=== PATIENT | female | born 1955 | race African-American/Black ===

== ENCOUNTER 2016-12-18 13:03 | Inpatient (IN) | payer SELFPAY ==
--- NOTE | ~2016-12-18 | OP ---
Record Of Operation [facility] [address] [place]. [address] NAME: MALVNI RUIZ : 57 STATUS : ADM IN PAT#: [id number] AGE: 61 ADM/REG DATE : 12/18/16 MR#: [id number] REPORT SERV DATE: 12/19/16 DICTATED BY: TOY DEMPSEY DATE: 12/18/16 REPORT STATUS : Draft TRANSCRIBED BY: MODL DATE: 12/18/16 DATE OF PROCEDURE: 12/18/2016 PREOPERATIVE DIAGNOSES: 1. Thoracic aortic aneurysm with rupture. 2. Claudication, left leg. POSTOPERATIVE DIAGNOSES: 1. Thoracic aortic aneurysm with rupture. 2. Claudication, left leg. PROCEDURES: 1. Thoracic aortogram. 2. Thoracic stent graft placement. 3. Aortogram and left iliac arteriogram. 4. Angioplasty and stent placement of the left external iliac artery. 5. Intravascular ultrasound of the abdominal and thoracic aorta. SURGEON: Toy Dempsey M.D. FELLOW: [employer]. ANESTHESIA: General. COMPLICATIONS: None. ESTIMATED BLOOD LOSS: 50 mL. HISTORY: The patient is a 61-year-old female who presented to [facility] with chest pain, which has actually been going on for a few weeks. CT scan showed a thoracic aneurysm with extravasation of contrast with a dissection in the abdominal aorta with adequate perfusion. She additionally had claudication symptoms in her left leg. It was felt she would benefit from repair of this thoracic aneurysm where the extravasation was noted. Additionally, plan is for evaluation of her perfusion to her left leg. This was discussed in detail the patient and family. They expressed understanding and desired to proceed. DESCRIPTION OF PROCEDURE: The patient was taken to the operating room and placed in the supine position. She was given general anesthesia without complication. Her abdomen, groins, and thighs were prepped and draped in sterile fashion. Ultrasound was used to identify the common femoral on the right. 1% lidocaine was infiltrated in the skin and subcutaneous tissues. Under ultrasound guidance, an 18-gauge needle was placed in the common femoral artery. Wire was passed through aorta which confirmed with fluoroscopy. The needle was removed. The access was pre-closed with two ProGlide devices at 90-degree angles after creating the skin incision with an 11 blade. The 11-Ugandan sheath was placed and the IVUS 9-Ugandan device used to perform intravascular ultrasound of the abdominal and thoracic aorta. A dissection was noted throughout the abdominal aorta. The bilateral renal Record Of Operation [facility] [address] [place]. [address] NAME: MALVIN RUIZ : 57 STATUS : ADM IN PAT#: [id number] AGE: 61 ADM/REG DATE : 12/18/16 MR#: [id number] REPORT SERV DATE: 12/19/16 DICTATED BY: TOY DEMPSEY DATE: 12/18/16 REPORT STATUS : Draft TRANSCRIBED BY: MODL DATE: 12/18/16 arteries, celiac, and SMA all appeared to come of the true lumen. They become what appears to be aneurysmal thoracic aorta with hematoma intramurally from the distal thoracic aorta to the arch. There was a bovine arch with the left subclavian origin which was seen as the innominate and bovine origin. Upon removing this, a UF catheter was passed and arch aortogram performed showing a patent aneurysmal arch. No extravasation is noted. Attention was turned to the left groin, the common femoral artery was identified with ultrasound accessed with 18-gauge needle. Wire passed easily. The needle was removed. A 5-Ugandan sheath was placed. The UF catheter was passed proximally. A 28 x 100 thoracic stent graft was brought up to the aortic arch over a Lunderquist wire and repeat arteriogram performed noting the location as subclavian in origin. The stent graft was then deployed, passed the subclavian origin and post arteriogram shows it to be patent with patent subclavian and innominate origins as well. Attention was then turned distally. The UF catheter was used to perform aortogram, which shows patent renal arteries bilaterally. There was poor flow in the aorta though. The large deployment device is still in place for the thoracic stent graft. This was pulled back distally and aortogram shows a small patent true lumen with what appears to be fairly prompt flow into the iliac arteries bilaterally. No evidence for stenosis is seen in the common iliac artery on the left. There does appear to be a mild stenosis in the external iliac artery. An 8 mm balloon was used to angioplasty the stenotic area of the external iliac artery proximally and post arteriogram shows it to be patent with no stenosis. There was still poor flow in the vessel beyond. Repeat arteriogram shows stenosis in the external iliac artery at its distal aspect just above the sheath and after angioplasty this area is actually more stenotic. A 7 x 40 self-expanding stent deployed here and post arteriogram shows it now to be widely patent with prompt flow. There was prompt flow into the common iliac as well. The SFA and profunda femoral origin all appear patent as well. This was felt to be adequate result. The sheath was removed from the right side and access closed with ProGlide device without difficulty. On the left, the sheath was removed and pressure held for 15 minutes. Hemostasis was achieved. The patient tolerated the procedure well. She will be taken to the recovery room in the ICU for postoperative care. EVITA/CRISPIN Toy Dempsey M.D. / [id number] CC: Toy Dempsey M.D.
--- NOTE | ~2016-12-18 | HP ---
History And Physical [place] [id number] [facility] [place]. [address] NAME: MALVIN RUIZ : 57 STATUS : ADM IN [facility]#: [id number] AGE: 61 ADM/REG DATE : 12/18/16 MR#: [id number] REPORT SERV DATE: 12/19/16 DICTATED BY: VIVIAN DEMPSEY DATE: 12/18/16 REPORT STATUS : Draft TRANSCRIBED BY: MODL DATE: 12/18/16 DATE OF ADMISSION: 12/18/2016 HISTORY: The patient is a 61-year-old female, who has had two to three weeks of chest pain. She had been to the ER multiple trips. She went today and underwent evaluation which included a CT scan due to her pleuritic chest pain, and this showed a thoracic aneurysm with extravasation as well as a distal aortic dissection in the abdominal aorta. Her other symptoms include claudication primarily in the left leg and some numbness in her left foot as well. She has no ulcerations or no rest pain symptoms. She has not had previous vascular issues. REVIEW OF SYSTEMS: GENERAL: She denies fever, chills, or systemic complaints. She has chest pain on the left side associated with her presentation. She denies palpitations. RESPIRATORY: She denies cough or shortness of breath, cough. GASTROINTESTINAL: She complains of constipation. GENITOURINARY: No complaints. MEDICATIONS: Her only medication is lisinopril. PAST MEDICAL HISTORY/ILLNESSES: Hypertension. PAST SURGICAL HISTORY: Significant for hysterectomy. SOCIAL HISTORY: Significant for tobacco use. FAMILY HISTORY: Noncontributory. PHYSICAL EXAMINATION: GENERAL: The patient is thin, in no distress. VITAL SIGNS: Within normal limits as is her pulse. LUNGS: Clear bilaterally. HEART: Regular rate and rhythm. ABDOMEN: Soft, nontender. NEUROLOGIC: She is alert and oriented with preserved motor function in lower extremities and upper extremities. She has palpable femoral pulse bilaterally, though it is weaker on the left. Her pedal pulses palpable on the right, nonpalpable on the left. She has no ulcerations on her upper and lower extremities. She did have a palpable radial artery pulse bilaterally. LABORATORY STUDIES: CT scan images were reviewed, which showed a thoracic aneurysm with hematoma and extravasation of contrast into the hematoma. She has distally a type B type dissection, which begins at the diaphragm, the mesenteric vessels, as well as the renal arteries appear patent. IMPRESSION: Type B dissection with extravasation of contrast. Based on this, it was felt History And Physical [address] [place]. [address] NAME: MALVIN RUIZ : 57 STATUS : ADM IN PAT#: [id number] AGE: 61 ADM/REG DATE : 12/18/16 MR#: [id number] REPORT SERV DATE: 12/19/16 DICTATED BY: VIVIAN DEMPSEY DATE: 12/18/16 REPORT STATUS : Draft TRANSCRIBED BY: MODL DATE: 12/18/16 she would benefit from urgent repair to avoid rupture. This was discussed in detail with the patient and family. EVITA/CRISPIN Vivian Dempsey M.D. / [id number] CC: Elana Carroll AMY
[~2016-12-18 13:03] MED LIST: PRIN20 PO
[2016-12-18] MEDS ORDERED: GOODY'S EX-STR1 EAC1 PO (13:58)
[2016-12-18] MEDS ORDERED: GINSENG PO (13:58)
[2016-12-19 04:07] LABS: BASOPHILS 0.1 %; BASOPHILS ABSOLUTE 0.01 10/3/uL (0.0-0.16); EOSINOPHILS 0 %; HEMOGLOBIN 7.2 g/dL (12.0-16.0); IMMATURE GRANULOCYTES 0.1 %; IMMATURE GRANULOCYTES ABSOLUTE 0.01 10/3/uL (0.0-0.11); LYMPHOCYTES 10.5 %; MEAN CORPUS HGB CONC 31.4 g/dL (32.0-36.0); MEAN CORPUSCULAR HEMOGLOB 23.9 pg (26.0-34.0); MEAN CORPUSCULAR VOLUME 76.1 fL (80-100); MONOCYTES 2.2 %; MONOCYTES ABSOLUTE 0.19 10/3/uL (0.21-1.20); NEUTROPHILS 87.1 %; NEUTROPHILS ABSOLUTE 7.47 10/3/uL (2.02-8.40); RBC DISTRIBUTION WIDTH 14.5 % (12.0-16.0); RED CELL COUNT 3.01 10/6/uL (4.0-5.6); WHITE BLOOD CELLS 8.6 10/3/uL (4.5-10.5)
[2016-12-19 04:08] LABS: HEMATOCRIT 22.9 % (36.0-48.0); MANUAL DIFF NO %; PLATELET COUNT 523 10/3/uL (150-400)
[2016-12-19 04:18] LABS: BUN (BLOOD UREA NITROGEN) 13 MG/DL (6-23); CHLORIDE, SERUM 109 MMOL/L (96-112); CREATININE 0.74 MG/DL (0.55-1.02); GFR AFRICAN AMERICAN 102 ML/MIN (>=60); GFR NON AFRICAN AMERICAN 88 ML/MIN (>=60); POTASSIUM, SERUM 4.4 MMOL/L (3.5-5.3); SODIUM, SERUM 143 MMOL/L (135-148)
[2016-12-19 04:20] LABS: CALCIUM, SERUM 8.5 MG/DL (8.5-10.4); CO2 (CARBON DIOXIDE) 25 MMOL/L (24-34); GLUCOSE, SERUM 163 MG/DL (60-99)
[2016-12-19 13:57] LABS: HEMOGLOBIN 8.4 g/dL (12.0-16.0)
[2016-12-19 13:58] LABS: HEMATOCRIT 26.1 % (36.0-48.0)
[2016-12-20 07:17] LABS: BASOPHILS 0.3 %; BASOPHILS ABSOLUTE 0.03 10/3/uL (0.0-0.16); EOSINOPHILS 0.3 %; EOSINOPHILS ABSOLUTE 0.03 10/3/uL (0.0-0.53); HEMATOCRIT 26.6 % (36.0-48.0); HEMOGLOBIN 8.6 g/dL (12.0-16.0); IMMATURE GRANULOCYTES 0.2 %; IMMATURE GRANULOCYTES ABSOLUTE 0.02 10/3/uL (0.0-0.11); LYMPHOCYTES 27.1 %; LYMPHOCYTES ABSOLUTE 3.08 10/3/uL (0.67-4.30); MEAN CORPUS HGB CONC 32.3 g/dL (32.0-36.0); MEAN CORPUSCULAR HEMOGLOB 24.9 pg (26.0-34.0); MEAN CORPUSCULAR VOLUME 76.9 fL (80-100); MEAN PLATELET VOLUME 8.1 fL (9.2-13.0); MONOCYTES 6.1 %; MONOCYTES ABSOLUTE 0.69 10/3/uL (0.21-1.20); NEUTROPHILS ABSOLUTE 7.51 10/3/uL (2.02-8.40); PLATELET COUNT 499 10/3/uL (150-400); RBC DISTRIBUTION WIDTH 15.2 % (12.0-16.0); RED CELL COUNT 3.46 10/6/uL (4.0-5.6); WHITE BLOOD CELLS 11.4 10/3/uL (4.5-10.5)
[2016-12-20 07:18] LABS: MANUAL DIFF NO %
[2016-12-20] MEDS ORDERED: PCET PO (13:29)
[2016-12-20] MEDS ORDERED: TRANDAT100 PO (13:31)
[2016-12-20] MEDS ORDERED: PLAVIX PO (13:31)
[2017-02-20] MEDS ORDERED: PRIN10 PO (09:57)
[2017-02-20] MEDS ORDERED: NORCO1 TA2 (09:58)
[2017-02-20] MEDS ORDERED: LIPITOR40 PO (09:58)
[2017-02-20] MEDS ORDERED: MIRALAX POWDER1 PKT PO (10:00)
== END 2016-12-20 15:14 | disposition home or self-care (01) | DRG 253 ==
LOC: ER 13:03 → SDC 15:05 → SDC/OF 15:07 → CCU 19:38
PROVIDERS: Surgery
DX: I71.1 Thoracic aortic aneurysm, ruptured (principal); D62 Acute posthemorrhagic anemia; I10 Essential (primary) hypertension; Z98.890 Other specified postprocedural states; Z72.0 Tobacco use; I48.91 Unspecified atrial fibrillation; I73.9 Peripheral vascular disease, unspecified
CPT/HCPCS: 33881; 36200; 36415; 36430; 37252; 75957; 80048; 83735; 85014; 85018; 85025; 86850; 86900; 86901; 86920; 87641; 99284; A9270-GY; C1725; C1760; C1769; C1876; C1894; J0690; J2250; J2370; J2405; J2710; J3010; J3370; P9016; P9045; Q9966

== ENCOUNTER 2016-12-27 14:08 | Observation (INO) | payer SELFPAY ==
--- NOTE | ~2016-12-27 | DS ---
Discharge Summary [facility] [address] [place]. [address] NAME: MALVIN RUIZ : 57 STATUS : DIS Tal PAT#: [id number] AGE: 61 ADM/REG DATE : 12/27/16 MR#: [id number] REPORT SERV DATE: 12/29/16 DICTATED BY: MARYLOU OLIVIA II DATE: 12/28/16 REPORT STATUS : Draft TRANSCRIBED BY: MODL DATE: 12/28/16 ADMISSION DATE: 12/27/2016 DISCHARGE DATE: 12/28/2016 DISCHARGE DIAGNOSES: 1. Generalized malaise and weakness, likely representing mild dehydration. 2. Questionable urinary tract infection. 3. Hematuria. 4. Electrocardiogram abnormalities. 5. Hypertension. 6. Recent repair of type B thoracic aortic dissection, 12/18/2016. 7. Microcytic anemia. 8. Chronic obstructive pulmonary disease. CONSULTS: 1. Alethea Barakat M.D. with Cardiology. 2. Robin Martin M.D. with Cardiology. BRIEF HISTORY OF PRESENT ILLNESS: The patient is a 61-year-old female with the above history who presented to [facility] due to generalized weakness. For detailed history and physical examination, please see Dr. Schwartz's note from 12/27/2016. HOSPITAL COURSE: On admission, the patient was found to have a urinalysis significant for large blood, small leukocyte esterase, 160 rbc's and only 9 wbc's. She had no symptoms of dysuria. She was barely given IV fluids in the ER. She did have an EKG done in the ER, which according to Dr. Barakat and Dr. Schwartz seemed to be an anomalous report and drastically inconsistent with her followup EKGs. See Dr. Barakat, and Dr. Schwartz's notes for details. There were some changes concerning for ischemia, on the first one however immediate repeat demonstrated completely different findings that convinced Dr. Barakat that the first EKG was either from a different patient or with technical error. The original was read as accelerated junctional rhythm with signs of LVH by voltage criteria with Q-wave in lead 3 and AVF and up to 1.[address]-elevation in lead 3 and 1 mm in lead AVF. On followup EKG, the patient was normal sinus with no evidence of Q-waves or ST elevation or ST depression, so the report was considered anomalous and the patient never had any chest pain, nor did she have any elevation in troponin. Overall, the patient's symptoms seemed to resolve spontaneously with IV fluids. A repeat urinalysis still showed large blood and moderate leukocyte esterase, but only 100 rbc's and 16 white blood cells. At this point, the patient is otherwise stable, so we will treat the patient with Omnicef for three days for a possible UTI and let her go home and follow up with her primary care physician for which she has an appointment coming up this Friday. DISCHARGE MEDICATIONS: 1. Omnicef 300 mg p.o. b.i.d. x3 days. 2. Plavix 75 mg p.o. daily. 3. Labetalol 100 mg p.o. daily. Discharge Summary [address] [address] NAME: MALVIN RUIZ : 57 STATUS : DIS Tal PAT#: [id number] AGE: 61 ADM/REG DATE : 12/27/16 MR#: [id number] REPORT SERV DATE: 12/29/16 DICTATED BY: MARYLOU OLIVIA II DATE: 12/28/16 REPORT STATUS : Draft TRANSCRIBED BY: CRISPIN DATE: 12/28/16 DISCHARGE INSTRUCTIONS: The patient will follow up with her PCP in one to two weeks. CRAIG/CRISPIN Marylou Olivia II, MD / [id number] CC: Marylou Olivia II, MD
--- NOTE | ~2016-12-27 | CN ---
Consultation Report [facility] [address] [place]. [address] NAME: MALVIN RUIZ : 57 STATUS : ADM Tal PAT#: [id number] AGE: 61 ADM/REG DATE : 12/27/16 MR#: [id number] REPORT SERV DATE: 12/28/16 DICTATED BY: FRITZ ALBRIGHT DATE: 12/27/16 REPORT STATUS : Draft TRANSCRIBED BY: MODL DATE: 12/27/16 CARDIOLOGY CONSULT DATE OF CONSULTATION: REFERRING PHYSICIAN: Dr. Schwartz in the emergency room. REFERRING REASON: EKG changes. HISTORY OF PRESENT ILLNESS: This is a pleasant 61 years old female without previous documented coronary artery disease, who has been recently on Dr. Pickard' vascular surgery service until 12/20/2016. She presented initially with one month lasting weakness and recurrent ER visits in [facility] and [facility], and was found to have type B aortic dissection extending to the renal arteries. She denied any chest pain at that time. She had CT of the chest, which was negative for pulmonary embolism, but revealed large emphysematous bullous changes in the setting of chronic smoking. She previously had untreated hypertension also. She was started on blood pressure medications and underwent, on 12/19/2016, thoracic aortic stenting by Dr. Pickard. She was discharged home on 12/20/2016 with followup by her primary care physician at [facility]. She presented today for some gross hematuria and continues to be feeling weak, but is able to ambulate. She denied any chest pain, palpitation, syncope, or other symptoms. Her initial electrocardiogram, which was labeled under her name was abnormal at 12:08 p.m., reveals possible accelerated junctional rhythm 101 beats per minute with signs of LVH by voltage criteria. Q-wave in lead III and aVF and up to 1.[address]-elevation in lead III and 1 mm in lead aVF. There was also negative ST-segment up to 1 mm in lead I and aVL. Dynamic ST changes in anterior leads were also noted. No code STEMI has been called at that time. Subsequent electrocardiogram at 04:38 p.m., however, revealed normal sinus rhythm 70 beats per minute with borderline signs of LVH by voltage criteria, but no evidence of Q-wave in inferior leads and no ST elevation and no ST depression. Almost looks like to be a different patient. Another electrocardiogram was repeated when I was present with Dr. Martin in the emergency room with concern about ST-elevation myocardial infarction process. The newest electrocardiogram was at 04:38 p.m., the previous one was 3:28 p.m., and the most recent one was at 04:38 p.m., again was completely normal with normal sinus rhythm 70 beats per minute without any ST elevation or presence of Q wave. I compared to the previous electrocardiogram dated 12/18/2016, which was also normal. The patient is hemodynamically stable without any chest pain or any other symptoms. No lower extremity edema. Her chest x-ray shows some emphysematous changes, but no acute process and her troponin is negative. The rest of review of system is negative. PAST MEDICAL HISTORY: 1. Hypertension started to be treated last month. 2. 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 3. Recent type B aortic dissection extending to both renal arteries without ascending aorta involvement. Consultation Report [address] [place]. [address] NAME: MALVIN RUIZ : 57 STATUS : ADM Tal PAT#: [id number] AGE: 61 ADM/REG DATE : 12/27/16 MR#: [id number] REPORT SERV DATE: 12/28/16 DICTATED BY: FRITZ ALBRIGHT DATE: 12/27/16 REPORT STATUS : Draft TRANSCRIBED BY: CRISPIN DATE: 12/27/16 4. Status post thoracic aortic stent by Dr. Pickard on 12/19/2016. 5. History of claudication in the left lower extremity with angioplasty of left iliac by Dr. Pickard on 12/19/2016. ALLERGIES: NO KNOWN DRUG ALLERGIES. HOME MEDICATIONS: Labetalol 100 mg twice a day and Plavix 75 mg once a day. PHYSICAL EXAMINATION: GENERAL: No acute distress. VITAL SIGNS: Blood pressure 113/60, heart rate 107 and regular. CARDIOVASCULAR: Normal. HEENT - Pupils reactive to light and accommodation. Moist mucosa membrane. NECK: No JVD. Normal carotid upstroke. No carotid bruits. LUNGS: Clear to auscultation bilaterally. Normal inspiratory efforts. ABD: Soft, nontender, nondistended. EXT: No edema. Pedal pulses strong and equal bilaterally. SKIN: Warm with normal turgor. MS - No kyphosis. NEURO/PSY - Alert and oriented. Nonfocal. DATA: CBC remarkable for hemoglobin 9.5, hematocrit 30. Electrolytes within normal limits. Troponin is negative. Urinalysis is remarkable for large amount of blood, leukocytes, and bacteria. Chest x-ray, emphysematous changes. Electrocardiogram as above. ASSESSMENT AND PLAN: 1. Chronic weakness of multifactorial etiology. 2. Gross hematuria. 3. Recent type B aortic dissection. 4. Status post recent thoracic aortic stenting and angioplasty to left iliac artery by Dr. Pickard. 5. EKG changes. I reviewed carefully all the electrocardiograms available examining the patient. I discussed the situation also with Dr. Sharma and Dr. Martin, who has been front office agent for interventional call. At the present time, there is no evidence of ST-elevation. She remains hemodynamically stable. It is possible that her first electrocardiogram was not even on the patient while there was clearly evidence at that time of Q wave in the inferior leads, but is not present at the present time. She will be closely monitored. We will repeat electrocardiogram, but at the present time, there is no plan to proceed with coronary arteriogram or stress test. Her blood pressure and risk factors should continue to be closely followed by PCP. Consultation Report [address] [place]. [address] NAME: MALVIN RUIZ : 57 STATUS : ADM Tal PAT#: [id number] AGE: 61 ADM/REG DATE : 12/27/16 MR#: [id number] REPORT SERV DATE: 12/28/16 DICTATED BY: FRITZ ALBRIGHT DATE: 12/27/16 REPORT STATUS : Draft TRANSCRIBED BY: CRISPIN DATE: 12/27/16 PJ/CRISPIN Fritz Albright M.D. / [id number] CC: Bal Nogueira Jr, MD
--- NOTE | ~2016-12-27 | HP ---
History And Physical [place] [id number] [facility] [place]. [address] NAME: MALVIN RUIZ : 57 STATUS : ADM Tal PAT#: [id number] AGE: 61 ADM/REG DATE : 12/27/16 MR#: [id number] REPORT SERV DATE: 12/28/16 DICTATED BY: ASHANEHEMIAH MAX DATE: 12/27/16 REPORT STATUS : Draft TRANSCRIBED BY: MODL DATE: 12/27/16 DATE OF ADMISSION: 12/27/2016 IDENTIFYING DATA: A 61-year-old female, whose PCP is Clarita Abbasi at the [facility]. Vascular surgeon, Dr. Toy Pickard. CHIEF COMPLAINT: Weakness. HISTORY OF PRESENT ILLNESS: This history of present illness is obtained by talking with the patient as well as ER physician, Dr. Ramirez, as well as reviewing [employer] and Vapotherm. The patient was here 12/17/2016 with a type B thoracic aortic dissection. At that time, she had been experiencing back pain and some chest pain and had gone to several emergency rooms. She underwent surgical repair with Dr. Toy Pickard on 12/18/2016 with thoracic stent graft placement, aortogram, and a left iliac aortogram with angioplasty and stent placement of the left external iliac artery. She states that she was able to go home on 12/20/2016. She states that she felt a little bit sluggish, but did pretty well, and then this morning, she just felt very weak, very fatigued, woozy. She uses the word dizzy, but denies any presyncopal sensation, because of this, she came to the emergency room. ER called me and stated that she had a very abnormal EKG and hematuria and wanted me to see her. I went to the ER, looked at her EKG, the one that was done at 1208 hours today. I told the ER physician, to me, it looked like an inferior ST elevation myocardial infarction with reciprocal changes laterally. I called Dr. Barakat, he and Dr. Martin directly came to the ER within just a few moment. A repeat EKG had already been done at 1528 hours and it was completely normal. The patient states she never had any chest pain at all during the last few days. Another repeat EKG at [address] Martin and Dr. Barakat thought the original EKG could not be hers, because in lead 3 there was a Q-wave, same in lead AVF and there were no Q-waves in her subsequent EKGs. They also felt that the tall voltage in the lateral lead on the EKG done at 1208 hours showed a persisted and they therefore felt this was not her EKG or it was some technical problem with the EKG and not representing reality. I have elected to put her on observation just for as a precaution. REVIEW OF SYSTEMS: She states she had some rash in her calves, took some Benadryl and it resolved, it was there last week. She denies chest pain, chest pressure, fever, cough, shortness of breath, abdominal pain, nausea, vomiting, diarrhea, rectal bleeding, anorexia, weight changes, hematuria, dysuria, peripheral edema, tick bites, or headaches. ALLERGIES: NO KNOWN DRUG ALLERGIES. PAST MEDICAL HISTORY: She denies any history of diabetes, heart disease, stroke, seizure, peptic ulcer, biliary tract disease, liver disease, chronic kidney disease, thyroid disease, cancer, or obstructive sleep apnea. She has a history of microcytic anemia, based on the labs here, it looks like it is not new, History And Physical [address] [address] NAME: MALVIN RUIZ : 57 STATUS : ADM Tal PAT#: [id number] AGE: 61 ADM/REG DATE : 12/27/16 MR#: [id number] REPORT SERV DATE: 12/28/16 DICTATED BY: NEHEMIAH SCHWARTZ DATE: 12/27/16 REPORT STATUS : Draft TRANSCRIBED BY: CRISPIN DATE: 12/27/16 she was microcytic and anemic as far back as 11/11/2012. She has a history of hypertension. She had COPD type changes that were noted when she had her CTA of the chest here on 12/18/2016. In fact, it was described as "severe bolus emphysema." She states she had asthma as a child. HOME MEDICATIONS: Plavix 75 mg daily; Trandate 100 mg b.i.d., looks like she is only taking the Trandate once a day. PAST SURGICAL HISTORY: She has had a previous hysterectomy and she had last week's endograft repair of her thoracic aortic aneurysm. SOCIAL HISTORY: She was smoking one pack per day. She now has reduced that to a pack per week, and she is trying to cut down even more. She would like to quit altogether. Denies any significant alcohol intake history. She works in security. She walks without any assistive kind of device. FAMILY HISTORY: She states her parents of old age. No health problems that she knows of. Siblings are doing well. DIAGNOSTIC DATA: EKG done today at 1209 hours, that is the initial one of concern, it showed what appeared to be accelerated junctional rhythm. No P waves. Heart rate 101. It had ST elevation in 3 and aVF with Q-waves and inverted T-waves in those same two leads, also with ST depression with T-wave inversion in 1 and aVL and V1 and V2. The followup EKG done today at 1528 hours reveals normal sinus rhythm and a normal EKG. Followup EKG after that at 1638 hours today again normal sinus rhythm and a normal EKG, and a comparison EKG on 12/18/2016 at 1044 hours again revealed normal sinus rhythm other than one PVC and a normal EKG. Chest x-ray today as a PA and lateral reveals the thoracic endograft, it also revealed a hyperexpanded lung winn and a narrow cardiac silhouette, no widening of the mediastinum, this is my interpretation. Sodium 142, potassium 3.9, chloride 107, CO2 is 31, BUN 13, creatinine 0.6, glucose is 103, calcium 9.3. Albumin is 2.2, globulin 4.6. The rest of the CMP is normal. Troponin less than 0.02. White count is 7.8, hemoglobin 9.5, and by comparison, it was 8.6 on 12/20/2016. MCV is microcytic at 77.7, platelets 491,000. Urinalysis on a clean catch today hazy appearance, urobilinogen 2, large amount of blood, small amount of leukocyte esterase, 160 red blood cells, 9 white blood cells, occasional budding yeast, rare bacteria. PHYSICAL EXAMINATION: VITAL SIGNS: Temp is 98, pulse is currently 80, respirations 18, blood pressure 120/70, O2 saturation is 97% on room air. GENERAL: Well-developed, thin female, who appears at this time in no acute distress. HEENT: Head is atraumatic. Pupils are equal, round, and reactive to light. Extraocular motions are intact. No scleral icterus noted. Ear canals and TMs unremarkable bilaterally with normal hearing and no inflammatory changes noted on the external ears. Nose, noninflamed externally. Septum midline. Nares patent. Mouth, moist. Good gag. No redness of the throat or gums or lips. NECK: Supple. No lymph node or thyroid enlargement. The carotids have good pulses. No History And Physical [address] [address] NAME: MALVIN RUIZ : 57 STATUS : ADM Tal PAT#: [id number] AGE: 61 ADM/REG DATE : 12/27/16 MR#: [id number] REPORT SERV DATE: 12/28/16 DICTATED BY: NEHEMIAH SCHWARTZ DATE: 12/27/16 REPORT STATUS : Draft TRANSCRIBED BY: CRISPIN DATE: 12/27/16 bruits. LUNGS: Clear. Good air flow anterior and posteriorly. No wheezes, no rhonchi. Normal respiratory effort. HEART: Regular rate and rhythm without murmur, gallop, click, or rub. ABDOMEN: Bowel sounds positive. Soft, nondistended, and nontender. No masses. No organomegaly. EXTREMITIES: There is no groin hematoma. There is minimal tenderness at the right groin with palpation. She has good pulses except diminished in her feet bilaterally. No clubbing. No cyanosis. No edema. No actively inflamed skin or joints. NEUROLOGIC: She is alert, oriented, and cooperative with grossly normal mentation and speech as well as motor and cranial nerves II through XII. ASSESSMENT: 1. Weakness with unclear etiology at this point in time. 2. Hematuria that is painless and she did have a Mujica catheter she states when she woke up from surgery from last week, so it may be related to that. 3. EKG abnormalities that at this point in time do not appear to fit with her clinical picture. Either that initial EKG done today at 1208 hours is somebody else's or there was something technically wrong because the subsequent ones had no Q-waves in the inferior leads. Cardiology does not feel that first EKG was hers, or if it was, they feel, it was a technically aberrant EKG. 4. Hypertension. 5. Recent repair of type B thoracic aortic dissection on 12/18/2016. 6. Microcytic anemia for a number of years. 7. Chronic obstructive pulmonary disease in a smoker. PLAN: 1. Observation on telemetry. 2. Cardiology, Dr. Barakat, has already been here. Dr. Martin has already been here. They reviewed the patient and EKG. They did not feel any intervention needs to be done at this time. Dr. Barakat's team will continue to follow the patient. They did not recommend any further interventions other than continuing the medicine she is already on. We are going to check a urine culture. We will get orthostatics. We will check serial troponins. We will check iron studies. We will check a TSH. I do not think we will start antibiotics because she really has no symptoms to suggest this is a urinary tract infection. Note: ER spoke with the vascular surgeon, Dr. Pickard, about this as well today. RSeTe/CRISPIN Nehemiah Schwartz M.D. / [id number] History And Physical [address] [address] NAME: MALVIN RUIZ : 57 STATUS : ADM Tal PAT#: [id number] AGE: 61 ADM/REG DATE : 12/27/16 MR#: [id number] REPORT SERV DATE: 12/28/16 DICTATED BY: NEHEMIAH SCHWARTZ DATE: 12/27/16 REPORT STATUS : Draft TRANSCRIBED BY: MODL DATE: 12/27/16 CC: Bal Nogueira Jr, MD Amy Coulter Charles Scott Joels, M.D.
[2016-12-27 13:30] LABS: BASOPHILS 0.5 %; BASOPHILS ABSOLUTE 0.04 10/3/uL (0.0-0.16); EOSINOPHILS 3.9 %; ER CBC TAT 0 Hrs 05 Mins; HEMOGLOBIN 9.5 g/dL (12.0-16.0); IMMATURE GRANULOCYTES 0.1 %; IMMATURE GRANULOCYTES ABSOLUTE 0.01 10/3/uL (0.0-0.11); LYMPHOCYTES 29.5 %; LYMPHOCYTES ABSOLUTE 2.29 10/3/uL (0.67-4.30); MANUAL DIFF NO %; MEAN CORPUS HGB CONC 31.7 g/dL (32.0-36.0); MEAN CORPUSCULAR HEMOGLOB 24.6 pg (26.0-34.0); MEAN CORPUSCULAR VOLUME 77.7 fL (80-100); MEAN PLATELET VOLUME 8.2 fL (9.2-13.0); MONOCYTES 6.1 %; MONOCYTES ABSOLUTE 0.47 10/3/uL (0.21-1.20); NEUTROPHILS 59.9 %; NEUTROPHILS ABSOLUTE 4.64 10/3/uL (2.02-8.40); PLATELET COUNT 491 10/3/uL (150-400); RED CELL COUNT 3.86 10/6/uL (4.0-5.6); WHITE BLOOD CELLS 7.8 10/3/uL (4.5-10.5)
[2016-12-27 13:37] LABS: ASCORBIC ACID (UR NOT ORDER) 40 (NEG); BILIRUBIN, URINE NEGATIVE (NEG); ER URINALYSIS TAT 0 Hrs 12 Mins; KETONE, URINE NEGATIVE (NEG); LEUKOCYTE ESTERASE(NOT OR SMALL (NEG); NITRITE (URINE) NEG (NEG); WBC (NOT ORDERED) (RFLEX) 9 (0-5)
[2016-12-27 13:47] LABS: A/G RATIO 0.5 (0.7-1.9); ALBUMIN 2.2 G/DL (3.5-5.0); ALKALINE PHOSPHATASE 61 U/L (45-117); BUN (BLOOD UREA NITROGEN) 13 MG/DL (6-23); CALCIUM, SERUM 9.3 MG/DL (8.5-10.4); CHLORIDE, SERUM 107 MMOL/L (96-112); CO2 (CARBON DIOXIDE) 31 MMOL/L (24-34); CREATININE 0.62 MG/DL (0.55-1.02); GFR AFRICAN AMERICAN 114 ML/MIN (>=60); GFR NON AFRICAN AMERICAN 98 ML/MIN (>=60); GLOBULIN 4.6 G/DL (2.5-4.1); GLUCOSE, SERUM 103 MG/DL (60-99); POTASSIUM, SERUM 3.9 MMOL/L (3.5-5.3); SGOT(AST) 10 U/L (5-40); SGPT(ALT) 13 U/L (5-65); SODIUM, SERUM 142 MMOL/L (135-148); TOTAL BILIRUBIN 0.1 MG/DL (0-1.2); TOTAL PROTEIN 6.8 G/DL (6.0-8.5); TROPONIN I <0.02 NG/ML (<0.05)
[~2016-12-27 14:08] MED LIST changes: +GINSENG PO; +GOODY'S EX-STR1 EAC1 PO; +PCET PO; +PLAVIX PO; +TRANDAT100 PO
[2016-12-27] MEDS ORDERED: PLAVIX PO (16:22)
[2016-12-27] MEDS ORDERED: TRANDAT100 PO (16:23)
[2016-12-27 19:44] LABS: FERRITIN 272 NG/ML (8-252); IRON BINDING CAPACITY 177 MCG/DL (225-410); IRON, SERUM 16 MCG/DL (35-150)
[2016-12-27 21:42] LABS: INTERNATIONAL NORMAL RATI 1.3 UNITS (-); PARTIAL THROMBO TIME 53.5 SEC (22.5-37.2); PROTIME (NOT ORD) 16.3 SEC (12.0-14.5)
[2016-12-28 04:46] LABS: BASOPHILS 0.8 %; BASOPHILS ABSOLUTE 0.06 10/3/uL (0.0-0.16); EOSINOPHILS 3.3 %; EOSINOPHILS ABSOLUTE 0.24 10/3/uL (0.0-0.53); HEMATOCRIT 27.6 % (36.0-48.0); HEMOGLOBIN 8.8 g/dL (12.0-16.0); IMMATURE GRANULOCYTES 0.1 %; IMMATURE GRANULOCYTES ABSOLUTE 0.01 10/3/uL (0.0-0.11); LYMPHOCYTES 31.3 %; LYMPHOCYTES ABSOLUTE 2.31 10/3/uL (0.67-4.30); MEAN CORPUS HGB CONC 31.9 g/dL (32.0-36.0); MEAN CORPUSCULAR HEMOGLOB 24.6 pg (26.0-34.0); MEAN CORPUSCULAR VOLUME 77.3 fL (80-100); MEAN PLATELET VOLUME 8.6 fL (9.2-13.0); MONOCYTES 6.5 %; MONOCYTES ABSOLUTE 0.48 10/3/uL (0.21-1.20); NEUTROPHILS ABSOLUTE 4.27 10/3/uL (2.02-8.40); PLATELET COUNT 476 10/3/uL (150-400); RBC DISTRIBUTION WIDTH 15.9 % (12.0-16.0); RED CELL COUNT 3.57 10/6/uL (4.0-5.6); WHITE BLOOD CELLS 7.4 10/3/uL (4.5-10.5)
[2016-12-28 04:47] LABS: MANUAL DIFF NO %
[2016-12-28 05:02] LABS: BUN (BLOOD UREA NITROGEN) 12 MG/DL (6-23); CALCIUM, SERUM 9.1 MG/DL (8.5-10.4); CHLORIDE, SERUM 109 MMOL/L (96-112); CREATININE 0.56 MG/DL (0.55-1.02); GFR AFRICAN AMERICAN 117 ML/MIN (>=60); GFR NON AFRICAN AMERICAN 101 ML/MIN (>=60); GLUCOSE, SERUM 88 MG/DL (60-99); POTASSIUM, SERUM 3.7 MMOL/L (3.5-5.3); SODIUM, SERUM 143 MMOL/L (135-148)
[2016-12-28 05:04] LABS: CO2 (CARBON DIOXIDE) 26 MMOL/L (24-34)
[2016-12-28 12:11] LABS: ASCORBIC ACID (UR NOT ORDER) NEG (NEG); BILIRUBIN, URINE NEGATIVE (NEG); KETONE, URINE NEGATIVE (NEG); LEUKOCYTE ESTERASE(NOT OR MOD (NEG); WBC (NOT ORDERED) (RFLEX) 16 (0-5)
[2016-12-28] MEDS ORDERED: OMNICEF300 PO (14:31)
[2017-02-20] MEDS ORDERED: PRIN10 PO (09:57)
[2017-02-20] MEDS ORDERED: LIPITOR40 PO (09:58)
[2017-02-20] MEDS ORDERED: NORCO1 TA2 (09:58)
[2017-02-20] MEDS ORDERED: MIRALAX POWDER1 PKT PO (10:00)
== END 2016-12-28 14:44 | disposition home or self-care (01) ==
LOC: ER 14:08 → CDU1 16:23
PROVIDERS: Emergency Medicine; Internal Medicine
DX: R31.0 Gross hematuria (principal); I10 Essential (primary) hypertension; J44.9 Chronic obstructive pulmonary disease, unspecified; D50.9 Iron deficiency anemia, unspecified; Z90.710 Acquired absence of both cervix and uterus
CPT/HCPCS: 71020; 80048; 80053; 81001; 82607; 82728; 83540; 83550; 84443; 84484; 85025; 85610; 85730; 87086; 93005; 96372; 99285; A9270-GY; G0378